=== PATIENT | male | born 1940 | race Caucasian/White ===

== ENCOUNTER → 2016-12-22 | Outpatient (CLI) | payer MEDICARE, BC ==
[2016-12-22 15:38] LABS: ALBUMIN/GLOBULIN RATIO 1.18 (1.00-1.93); BILIRUBIN,TOTAL 0.5 MG/DL (0.2-1.0); CALCIUM LEVEL 8.8 MG/DL (8.8-10.2); CREATININE FOR GFR 1.28 MG/DL (0.70-1.30); GLOMERULAR FILTRATION RATE 57.9 (>42); POTASSIUM SERUM 4.2 MEQ/L (3.5-5.1); TOTAL PROTEIN 7.4 GM/DL (6.4-8.2)
== END ==
LOC: M LAB 14:46
PROVIDERS: ATTEND Ophthalmology
DX: H25.13 Age-related nuclear cataract, bilateral (principal)

== ENCOUNTER → 2017-04-06 | Outpatient (CLI) | payer MEDICARE, BC ==
[~2017-04-06] VITALS: Ht 177.8 cm; Wt 95.3 kg
[~2017-04-06] MED LIST: ASPI1TAB PO; ATOR40TA PO; CENTTAB47 PO; DOFE250C PO; ISTA0.5S OU; MAGN400T5 PO; METO25TA74 PO; NS 1,000 ML IV ONE; PROPOFOL 200 MG/20 ML VIAL As Ordered ONE; TRAV04OPD OU
--- NOTE | 2017-04-06 13:39 | ROOR ---
Patient Name: Kris Givens Procedure Date: 04/06/2017 1:15 PM Date of : 1940 Age: 76 Room: [facility] Gender: Male Note Status: Finalized Procedure: Colonoscopy to Anastomosis + Cold Snare Polypectomy + Hemoclip Indications: High risk colon cancer surveillance: Personal history of colonic polyps, Last colonoscopy: 2011 Providers: Dayne Gonzalez MD Referring MD: NANETTE DYER JR, MD Requesting Provider: Medicines: Monitored Anesthesia Care Complications: No immediate complications. Procedure: Pre-Anesthesia Assessment: - The heart rate, respiratory rate, oxygen saturations, blood pressure, adequacy of pulmonary ventilation, and response to care were monitored throughout the procedure. The Colonoscope was introduced through the anus and advanced to the ileocolonic anastomosis. The colonoscopy was performed without difficulty. The patient tolerated the procedure well. The quality of the bowel preparation was excellent. Findings: The perianal and digital rectal examinations were normal. Non-bleeding internal hemorrhoids were found during retroflexion. The hemorrhoids were small and Grade I (internal hemorrhoids that do not prolapse). Multiple small and large-mouthed diverticula were found in the recto-sigmoid colon, sigmoid colon and descending colon. A medium polyp was found in the mid transverse colon. The polyp was sessile. The polyp was removed with a cold snare. Resection and retrieval were complete. To prevent bleeding after the polypectomy, one hemostatic clip was successfully placed (MR conditional). There was no bleeding at the end of the procedure. The exam was otherwise without abnormality. Impression: - Non-bleeding internal hemorrhoids. - Diverticulosis in the recto-sigmoid colon, in the sigmoid colon and in the descending colon. - One medium polyp in the mid transverse colon, removed with a cold snare. Resected and retrieved. Clip (MR conditional) was placed. - The examination was otherwise normal. Recommendation: - Patient has a contact number available for emergencies. The signs and symptoms of potential delayed complications were discussed with the patient. Return to normal activities tomorrow. Written discharge instructions were provided to the patient. - High fiber diet. - Discharge patient to home. - Continue present medications. - Await pathology results. - Telephone GI clinic for pathology results in 1 week. - Check Portal Online for Path Results.([email or web address] - Repeat colonoscopy for symptoms only. - The findings and recommendations were discussed with the patient's family. Dayne Gonzalez MD Dayne Gonzaelz MD 04/06/2017 1:36:42 PM This report has been signed electronically. Number of Addenda: 0 Note Initiated On: 04/06/2017 1:15 PM Estimated Blood Loss: Estimated blood loss: none.
[2017-04-06 14:05] VITALS: BP 151/74
== END | disposition home or self-care (01) ==
LOC: M OPP 11:34
PROVIDERS: ATTEND Internal Medicine Gastroenterology
DX: Z12.11 Encounter for screening for malignant neoplasm of colon (principal); D12.3 Benign neoplasm of transverse colon; K64.0 First degree hemorrhoids; K57.30 Diverticulosis of large intestine without perforation or abscess without bleeding; Z86.010 Personal history of colon polyps; I48.91 Unspecified atrial fibrillation; I25.10 Atherosclerotic heart disease of native coronary artery without angina pectoris; I10 Essential (primary) hypertension; E78.5 Hyperlipidemia, unspecified; R12 Heartburn; Z85.46 Personal history of malignant neoplasm of prostate; Z92.3 Personal history of irradiation; K21.9 Gastro-esophageal reflux disease without esophagitis; G47.30 Sleep apnea, unspecified; R06.83 Snoring; R06.02 Shortness of breath; Z95.5 Presence of coronary angioplasty implant and graft; Z87.19 Personal history of other diseases of the digestive system; Z91.040 Latex allergy status; Z91.041 Radiographic dye allergy status; Z79.82 Long term (current) use of aspirin; Z87.891 Personal history of nicotine dependence

== ENCOUNTER 2017-10-22 16:15 | Emergency (ER) | payer MEDICARE, BC ==
[~2017-10-22] VITALS: Ht 177.8 cm; Wt 102.5 kg
[~2017-10-22 16:15] MED LIST changes: -CLOP75TA2 PO; -DOXY-278 PO; -MELA3TAB49 PO; -PANT40TA2 PO; -TIKO250C PO
[2017-10-22] MEDS ORDERED: CLOP75TA2 PO (16:25)
[2017-10-22] MEDS ORDERED: DOXY-278 PO (16:25)
[2017-10-22] MEDS ORDERED: MELA3TAB49 PO (16:25)
[2017-10-22] MEDS ORDERED: TIKO250C PO (16:25)
[2017-10-22] MEDS ORDERED: PANT40TA2 PO (16:25)
[2017-10-22 17:15] LABS: BASO # 0.1 10^3/uL (0.0-0.2); BASO % 0.9 % (0.0-1.0); EOS # 0.7 10^3/uL (0.0-0.50); EOS % 10.7 % (0.0-3.0); IMMATURE GRANULOCYTE % 0.3 % (0-0); LYMPH # 1.5 10^3/uL (1.5-4.5); MEAN CORPUSCULAR HEMOGLOBIN 32.2 pg (27.0-33.0); MEAN CORPUSCULAR VOLUME 94.7 fl (80.0-96.0); MONO # 0.7 10^3/uL (0.0-0.8); MONO % 10.7 % (0.0-5.0); NEUTROPHILS # 3.9 10^3/uL (1.8-7.7); NEUTROPHILS % 56.4 % (36.0-66.0); PLATELET COUNT, AUTOMATED 242 10^3/uL (150-450); RED CELL DISTRIBUTION WIDTH 13.2 % (11.5-14.5); WHITE BLOOD COUNT 6.9 10^3/uL (4.0-10.0)
[2017-10-22 17:28] LABS: INR 0.99
[2017-10-22 17:36] LABS: ANION GAP 6 MEQ/L (8-16); BLOOD UREA NITROGEN 18 MG/DL (7-18); CALCIUM LEVEL 8.9 MG/DL (8.8-10.2); CARBON DIOXIDE LEVEL 27 MEQ/L (21-32); CHLORIDE LEVEL 105 MEQ/L (98-107); CREATININE FOR GFR 1.19 MG/DL (0.70-1.30); GLOMERULAR FILTRATION RATE > 60.0 (>42); GLUCOSE, FASTING 132 MG/DL (83-110); POTASSIUM SERUM 4.4 MEQ/L (3.5-5.1); SODIUM LEVEL 138 MEQ/L (136-145)
[2017-10-22 17:42] LABS: ALBUMIN 3.8 GM/DL (3.2-5.2); ALBUMIN/GLOBULIN RATIO 1.36 (1.00-1.93); BILIRUBIN,DIRECT 0.2 MG/DL (0.0-0.2); BILIRUBIN,TOTAL 0.6 MG/DL (0.2-1.0); MAGNESIUM LEVEL 2.4 MG/DL (1.8-2.4); TOTAL PROTEIN 6.6 GM/DL (6.4-8.2)
[2017-10-22] MEDS ORDERED: METOCLOPRAMIDE INJ 10MG/2ML VIAL (J2765) IV ONE (18:30)
[2017-10-22] MEDS ORDERED: ISOVUE-370 76% 100ML VIAL (Q9967) As Ordered ONE (18:35)
[2017-10-22 18:43] LABS: DIGOXIN LEVEL 0.1 NG/ML (0.5-2.0)
--- NOTE | 2017-10-22 19:08 | REP ---
Clinical: Dyspnea . Comparison: 05/24/2011. Technique: Axial contrast enhanced images from the thoracic inlet to the upper abdomen using 100 ml Isovue 370 intravenous contrast material with MIP coronal and sagittal re-formations. Findings: Satisfactory enhancement of the pulmonary vasculature is achieved and no filling defects are identified to suggest pulmonary embolus. Atherosclerotic changes to the thoracic aorta and coronary arteries noted without aortic aneurysm or significant cardiomegaly. Pericardial effusion. Lung rowley demonstrate minimal chronic stable biapical scarring and small bullae as well as mild bibasilar fibroatelectatic changes and bronchiectasis. No acute consolidation, pleural effusion, significant nodule or mass lesion identified. Tiny 2 mm nodules in the periphery of the right hemithorax are stable compared to 2010. Pneumothorax. No adenopathy. Impression: No evidence for pulmonary embolus. No acute pleuroparenchymal or mediastinal process. Signed by Tom Norwood MD 10/22/2017 07:00 P
[2017-10-22 21:18] VITALS: BP 154/76
--- NOTE | 2017-10-24 08:34 | ECGEPIP ---
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
--- NOTE | 2017-10-24 08:38 | ECGEPIP ---
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
== END 2017-10-22 21:15 | disposition home or self-care (01) ==
LOC: M ED 16:15
DX: R06.02 Shortness of breath (principal); Z79.01 Long term (current) use of anticoagulants; Z79.899 Other long term (current) drug therapy; Z79.82 Long term (current) use of aspirin; Z91.041 Radiographic dye allergy status; Z91.040 Latex allergy status; Z86.011 Personal history of benign neoplasm of the brain; Z87.891 Personal history of nicotine dependence; Z95.5 Presence of coronary angioplasty implant and graft; Z98.890 Other specified postprocedural states
CPT/HCPCS: 71020; 71275; 80048; 80076; 80162; 82550; 82553; 83735; 83880; 84443; 84484; 85025; 85610; 87040; 87804; 93005; 93041; 94760; 96372; 99285; J2765; Q9967

== ENCOUNTER → 2017-10-22 | Outpatient (CLI) | payer MEDICARE, BC ==
[~2017-10-22] MED LIST changes: -ATOR40TA PO; +ATOR40TA75 PO; +CLOP75TA2 PO; +DOXY-278 PO; +MELA3TAB49 PO; +METO1TAB32 PO; -METO25TA74 PO; -NS 1,000 ML IV ONE; +PANT40TA2 PO; -PROPOFOL 200 MG/20 ML VIAL As Ordered ONE; +TIKO250C PO
--- NOTE | 2017-10-22 15:40 | REP ---
Clinical: Chest pain and shortness of breath . Comparison: 05/14/2016 . Technique: PA and lateral. Findings: The mediastinum and cardiac silhouette are normal. The lung rowley demonstrate chronic changes without acute consolidation, effusion, or pneumothorax. The skeletal structures are intact and normal. Impression: 1. No acute cardiopulmonary process. Signed by Tom Norwood MD 10/22/2017 03:32 P
== END ==
LOC: M WUC 14:57
PROVIDERS: ATTEND Physician Assistant
DX: R06.02 Shortness of breath (principal)

== ENCOUNTER → 2018-02-14 | Outpatient (CLI) | payer MEDICARE, BC ==
[~2018-02-14] MED LIST changes: -ASPI1TAB PO; -ATOR40TA75 PO; -CENTTAB47 PO; -DOFE250C PO; -ISTA0.5S OU; -MAGN400T5 PO; +METHACHOLINE KIT (J7674) INH; -METO1TAB32 PO; -TRAV04OPD OU
== END ==
LOC: M CARPUL 14:57
DX: R05 Cough (principal); R06.00 Dyspnea, unspecified
CPT/HCPCS: J7674

== ENCOUNTER 2018-05-17 07:51 | Day surgery (SDC) | payer MEDICARE, BC ==
[2018-05-17] MEDS: NS 1,000 ML IV (08:15)
[2018-05-17] MEDS ORDERED: fentaNYL 100 MCG/2 ML INJECTION (J3010) As Ordered (09:14)
[2018-05-17] MEDS ORDERED: LIDOCAINE 2% INJ 100 MG/5 ML SDV (FOR ANES.) As Ordered (09:14)
[2018-05-17] MEDS ORDERED: PROPOFOL 500 MG/50 ML VIAL As Ordered (09:14)
== END 2018-05-17 10:05 | disposition home or self-care (01) ==
LOC: M OPP 07:51
DX: Z09 Encounter for follow-up examination after completed treatment for conditions other than malignant neoplasm (principal); Z86.010 Personal history of colon polyps; D12.3 Benign neoplasm of transverse colon; K64.0 First degree hemorrhoids; K57.30 Diverticulosis of large intestine without perforation or abscess without bleeding; Z98.0 Intestinal bypass and anastomosis status; R12 Heartburn; R05 Cough; K22.8 Other specified diseases of esophagus; Z98.84 Bariatric surgery status; K31.89 Other diseases of stomach and duodenum; I48.91 Unspecified atrial fibrillation; Z95.5 Presence of coronary angioplasty implant and graft; I25.10 Atherosclerotic heart disease of native coronary artery without angina pectoris; I10 Essential (primary) hypertension; E78.5 Hyperlipidemia, unspecified; Z87.19 Personal history of other diseases of the digestive system; K21.9 Gastro-esophageal reflux disease without esophagitis; M19.90 Unspecified osteoarthritis, unspecified site; Z85.46 Personal history of malignant neoplasm of prostate; Z92.3 Personal history of irradiation; G47.30 Sleep apnea, unspecified; R06.83 Snoring; Z85.828 Personal history of other malignant neoplasm of skin; Z91.041 Radiographic dye allergy status; Z79.82 Long term (current) use of aspirin; Z79.899 Other long term (current) drug therapy; Z87.891 Personal history of nicotine dependence
CPT/HCPCS: 45385

== ENCOUNTER → 2018-10-11 | Outpatient (CLI) | payer MEDICARE, BC ==
[2018-10-11 15:10] LABS: BASO # 0.1 10^3/uL (0.0-0.2); BASO % 0.8 % (0.0-1.0); EOS # 0.4 10^3/uL (0.0-0.50); EOS % 6.3 % (0.0-3.0); HEMOGLOBIN 13.2 g/dl (13.5-17.5); IMMATURE GRANULOCYTE % 0.3 % (0-3.0); LYMPH # 1.4 10^3/uL (1.5-4.5); LYMPH % 21.8 % (24.0-44.0); MEAN CORPUSCULAR HEMOGLOBIN 32.7 pg (27.0-33.0); MONO # 0.8 10^3/uL (0.0-0.8); MONO % 12.7 % (0.0-5.0); NEUTROPHILS # 3.8 10^3/uL (1.8-7.7); NEUTROPHILS % 58.1 % (36.0-66.0); PLATELET COUNT, AUTOMATED 274 10^3/uL (150-450); RED BLOOD COUNT 4.04 10^6/uL (4.30-6.10); RED CELL DISTRIBUTION WIDTH 13.4 % (11.5-14.5); WHITE BLOOD COUNT 6.5 10^3/uL (4.0-10.0)
[2018-10-11 15:25] LABS: ANION GAP 7 MEQ/L (8-16); BLOOD UREA NITROGEN 24 MG/DL (7-18); CALCIUM LEVEL 9.2 MG/DL (8.8-10.2); CARBON DIOXIDE LEVEL 29 MEQ/L (21-32); CHLORIDE LEVEL 103 MEQ/L (98-107); GLOMERULAR FILTRATION RATE 56.5 (>35); GLUCOSE, FASTING 123 MG/DL (70-100); POTASSIUM SERUM 4.8 MEQ/L (3.5-5.1); SODIUM LEVEL 139 MEQ/L (136-145)
== END ==
LOC: M LAB 13:58
DX: R51 Headache (principal)
CPT/HCPCS: 70450

== ENCOUNTER 2019-09-03 09:57 | Day surgery (SDC) | payer MEDICARE, BC ==
[~2019-09-03] VITALS: Ht 177.8 cm; Wt 107.0 kg
[~2019-09-03 09:57] MED LIST changes: +ASPI81TA26 PO; +ATOR40TA75 PO; +CARI1TAB7 PO; +CENTTAB47 PO; +CLOP75TA2 PO; +DOFE250C PO; +DOXY-350 PO; +ISTA0.5S OU; +MAGN400T PO; +MAGN400T5 PO; +MELA3TAB49 PO; -METHACHOLINE KIT (J7674) INH; +METO1TAB32 PO; +MULTCAP12 PO; +NS 1,000 ML IV ONE; +OMEP20CA4 PO; +OMEP40CA2 PO; +PANT40TA3 PO; +TIKO250C PO; +TRAV04OPD OU
[2019-09-03] MEDS ORDERED: LIDOCAINE 2% INJ 100 MG/5 ML SDV (FOR ANES.) As Ordered ONE (12:01)
[2019-09-03] MEDS ORDERED: PROPOFOL 200 MG/20 ML VIAL As Ordered ONE ×2 (12:01→12:07)
--- NOTE | 2019-09-03 12:01 | ROOR ---
Patient Name: Kris Givens Procedure Date: 09/03/2019 11:41 AM Date of : 1940 Age: 78 Room: [facility] Gender: Male Note Status: Finalized Procedure: Upper Endoscopy + Biopsies Indications: Unexplained iron deficiency anemia Providers: Dayne Gonzalez MD Referring MD: NANETTE DYER JR, MD Requesting Provider: Medicines: Monitored Anesthesia Care Complications: No immediate complications. Procedure: Pre-Anesthesia Assessment: - The heart rate, respiratory rate, oxygen saturations, blood pressure, adequacy of pulmonary ventilation, and response to care were monitored throughout the procedure. The Endoscope was introduced through the mouth, and advanced to the second part of duodenum. The upper GI endoscopy was accomplished without difficulty. The patient tolerated the procedure well. Findings: The Z-line was irregular and was found 35 cm from the incisors. Multiple biopsies were obtained with cold forceps for evaluation to rule out Reeder's Esophagus randomly at the gastroesophageal junction. Evidence of a patent Billroth II gastrojejunostomy was found. This was traversed. Diffuse mild inflammation characterized by adherent blood, congestion (edema), erosions, erythema and friability was found in the entire examined stomach. Biopsies were taken with a cold forceps for histology. The exam was otherwise without abnormality. Impression: - Z-line irregular, 35 cm from the incisors. - Patent Billroth II gastrojejunostomy was found. - Mucosal changes suspicious for gastritis. Biopsied. - The examination was otherwise normal. - Multiple biopsies were obtained at the gastroesophageal junction. - The examination was otherwise normal. Recommendation: - Await pathology results. - Discharge patient to home. - Follow an antireflux regimen. - Continue present medications. - Await pathology results. - Telephone GI clinic for pathology results in 1 week. - Return to referring physician. - Use sucralfate tablets 1 gram PO BID. - The findings and recommendations were discussed with the patient's family. Dayne Gonzalez MD Dayne Gonzalez MD 09/03/2019 12:00:26 PM Electronically signed by Dayne Gonzalez MD Number of Addenda: 0 Note Initiated On: 09/03/2019 11:41 AM Estimated Blood Loss: Estimated blood loss: none.
--- NOTE | 2019-09-03 12:28 | ROOR ---
Patient Name: Kris Givens Procedure Date: 09/03/2019 11:41 AM Date of : 1940 Age: 78 Room: [facility] Gender: Male Note Status: Finalized Procedure: Total Colonoscopy to Anastomosis + Cold snare Polypectomy + Hemoclips Indications: Unexplained iron deficiency anemia Providers: Dayne Gonzalez MD Referring MD: NANETTE DYER JR, MD Requesting Provider: Medicines: Monitored Anesthesia Care Complications: No immediate complications. Procedure: Pre-Anesthesia Assessment: - The heart rate, respiratory rate, oxygen saturations, blood pressure, adequacy of pulmonary ventilation, and response to care were monitored throughout the procedure. The Colonoscope was introduced through the anus and advanced to the ileocolonic anastomosis. The colonoscopy was performed without difficulty. The patient tolerated the procedure well. The quality of the bowel preparation was excellent. Findings: The perianal and digital rectal examinations were normal. Non-bleeding internal hemorrhoids were found during retroflexion. The hemorrhoids were small and Grade I (internal hemorrhoids that do not prolapse). Multiple small and large-mouthed diverticula were found in the recto-sigmoid colon, sigmoid colon and descending colon. A large polyp was found at 50 cm proximal to the anus. The polyp was sessile. The polyp was removed with a cold snare. Resection and retrieval were complete. To prevent bleeding after the polypectomy, three hemostatic clips were successfully placed (MR conditional). There was no bleeding at the end of the procedure. A large polyp was found in the transverse colon. The polyp was sessile. The polyp was removed with a cold snare. Resection and retrieval were complete. To prevent bleeding after the polypectomy, three hemostatic clips were successfully placed (MR conditional). There was no bleeding at the end of the procedure. The exam was otherwise without abnormality. Impression: - Non-bleeding internal hemorrhoids. - Diverticulosis in the recto-sigmoid colon, in the sigmoid colon and in the descending colon. - One large polyp at 50 cm proximal to the anus, removed with a cold snare. Resected and retrieved. Clips (MR conditional) were placed. - One large polyp in the transverse colon, removed with a cold snare. Resected and retrieved. Clips (MR conditional) were placed. - The examination was otherwise normal. Recommendation: - Patient has a contact number available for emergencies. The signs and symptoms of potential delayed complications were discussed with the patient. Return to normal activities tomorrow. Written discharge instructions were provided to the patient. - High fiber diet. - Discharge patient to home. - Continue present medications. - Await pathology results. - Telephone GI clinic for pathology results in 1 week. - Repeat colonoscopy for surveillance based on pathology results. - Return to referring physician. - The findings and recommendations were discussed with the patient's family. Dayne Gonzalez MD Dayne Gonzalez MD 09/03/2019 12:28:06 PM Electronically signed by Dayne Gonzalez MD Number of Addenda: 0 Note Initiated On: 09/03/2019 11:41 AM Estimated Blood Loss: Estimated blood loss: none.
[2019-09-03 12:45] VITALS: BP 131/69
== END 2019-09-03 12:55 | disposition home or self-care (01) ==
LOC: M OPP 09:57
PROVIDERS: ATTEND Internal Medicine Gastroenterology
DX: K64.0 First degree hemorrhoids (principal); D12.6 Benign neoplasm of colon, unspecified; D21.3 Benign neoplasm of connective and other soft tissue of thorax; K57.30 Diverticulosis of large intestine without perforation or abscess without bleeding; D50.9 Iron deficiency anemia, unspecified; K22.8 Other specified diseases of esophagus; Z98.0 Intestinal bypass and anastomosis status; K31.89 Other diseases of stomach and duodenum; I48.91 Unspecified atrial fibrillation; G47.30 Sleep apnea, unspecified; Z79.82 Long term (current) use of aspirin; Z79.899 Other long term (current) drug therapy; Z91.041 Radiographic dye allergy status; Z85.46 Personal history of malignant neoplasm of prostate; Z92.3 Personal history of irradiation; Z87.19 Personal history of other diseases of the digestive system

== ENCOUNTER → 2020-03-14 | Outpatient (REF) | payer MEDICARE, BC ==
[~2020-03-14] MED LIST changes: -MAGN400T PO; +MAGN400T3 PO; -NS 1,000 ML IV ONE; +OMEP1CAP73 PO; -OMEP20CA4 PO; -OMEP40CA2 PO; +OMEP40CA97 PO
== END ==
LOC: M LAB REF 16:37
PROVIDERS: ATTEND Internal Medicine
DX: R74.8 Abnormal levels of other serum enzymes (principal)

== ENCOUNTER 2020-03-25 15:07 | Inpatient (IN) | payer MEDICARE, BC ==
[~2020-03-25] VITALS: Ht 177.8 cm; Wt 111.7 kg
[2020-03-25] MEDS ORDERED: SUCR1TAB56 PO (15:39)
[2020-03-25] MEDS ORDERED: MIRTAZAPINE (15:39)
[2020-03-25] MEDS ORDERED: METO1TAB32 PO (15:39)
[2020-03-25] MEDS ORDERED: BREO1INH INH (15:39)
[2020-03-25] MEDS ORDERED: NS 1,000 ML IV ONE (16:00)
[2020-03-25] MEDS ORDERED: METOPROLOL SUCC *XL* 25MG TAB (TopROL *XL*) PO ONE (16:15)
[2020-03-25 16:19] LABS: BASO # 0.1 10^3/uL (0.0-0.2); BASO % 0.6 % (0.0-1.0); EOS # 0.4 10^3/uL (0.0-0.5); EOS % 3.8 % (0.0-3.0); HEMATOCRIT 42.8 % (42.0-52.0); LYMPH # 1.1 10^3/uL (1.5-5.0); LYMPH % 11.1 % (24.0-44.0); MEAN CORPUSCULAR HEMOGLOBIN 31.7 pg (27.0-33.0); MEAN CORPUSCULAR HGB CONC 32.7 g/dl (32.0-36.5); MEAN CORPUSCULAR VOLUME 97.1 fl (80.0-96.0); MONO # 1.1 10^3/uL (0.0-0.8); MONO % 11.9 % (0.0-5.0); NEUTROPHILS # 6.8 10^3/uL (1.5-8.5); NEUTROPHILS % 72.1 % (36.0-66.0); PLATELET COUNT, AUTOMATED 258 10^3/uL (150-450); RED BLOOD COUNT 4.41 10^6/uL (4.30-6.10); WHITE BLOOD COUNT 9.5 10^3/uL (4.0-10.0)
[2020-03-25 16:56] LABS: ALT/SGPT 54 U/L (12-78); BILIRUBIN,DIRECT 0.2 MG/DL (0.0-0.2); BILIRUBIN,TOTAL 0.6 MG/DL (0.2-1.0); BLOOD UREA NITROGEN 22 MG/DL (7-18); C REACTIVE PROTEIN QUANTITATIV 1.85 MG/DL (0.00-0.30); CALCIUM LEVEL 8.9 MG/DL (8.8-10.2); CARBON DIOXIDE LEVEL 27 MEQ/L (21-32); CHLORIDE LEVEL 103 MEQ/L (98-107); CK-MB VALUE MASS < 1.0 NG/ML (<3.6); CPK CREATINE PHOSPHOKINASE 41 U/L (39-308); CREATININE FOR GFR 1.17 MG/DL (0.70-1.30); FREE T4 0.98 NG/DL (0.76-1.46); GLOMERULAR FILTRATION RATE > 60.0 (>35); GLUCOSE, FASTING 104 MG/DL (70-100); MB/CK RELATIVE INDEX 2.44 (< OR =4); NT-PRO BNP 169 PG/ML (<450); POTASSIUM SERUM 4.7 MEQ/L (3.5-5.1); SODIUM LEVEL 134 MEQ/L (136-145); THYROID STIMULATING HORMONE 0.936 uIU/ML (0.358-3.740); TOTAL PROTEIN 7.8 GM/DL (6.4-8.2); TROPONIN I < 0.02 NG/ML (< 0.10)
[2020-03-25] MEDS ORDERED: ISOVUE-370 76% 100ML VIAL As Ordered ONE (17:06)
--- NOTE | 2020-03-25 17:08 | REP ---
REASON FOR EXAM: Chest pain. COMPARISON: Multiple, the latest 10/22/2016. The technique utilized in obtaining the radiograph has magnified the cardiac silhouette and accentuated the interstitial markings. There is cardiomegaly accentuated by technique. There is no significant change in appearance of the lung rowley. Mild fibrotic changes with basilar predominance, status quo. No acute patchy parenchymal opacities or pleural effusions have developed. There is no change in the osseous structures. IMPRESSION: Stable-appearing chronic changes, as described above. Electronically Signed by Farhan Lee DO 03/26/2020 08:59 A
--- NOTE | 2020-03-25 17:43 | REPVR ---
PROCEDURE INFORMATION: Exam: CT Head Without Contrast Exam date and time: 03/25/2020 5:31 PM Age: 79 years old Clinical indication: Pain; Headache TECHNIQUE: Imaging protocol: Computed tomography of the head without contrast. Radiation optimization: All CT scans at this facility use at least one of these dose optimization techniques: automated exposure control; mA and/or kV adjustment per patient size (includes targeted exams where dose is matched to clinical indication); or iterative reconstruction. COMPARISON: CT Head without contrast 10/11/2018 2:47 PM FINDINGS: Brain: No concerning intracranial mass, focal mass effect or midline shift. Calcified 13 mm right frontal meningioma. No mass effect No acute intracranial hemorrhage. Mild decreased attenuation in periventricular/centrum semiovale white matter. No focal effacement of cortical sulci to indicate acute cortical infarct. Ventricles: Prominent ventricles and CSF spaces suggest parenchymal volume loss. Bones/joints: No calvarial fracture or destructive process. Sinuses: Visualized paranasal sinuses are unremarkable. Mastoid air cells: Mastoid air cells are normally aerated. Orbits: Visualized globes and orbits are unremarkable. Soft tissues: No focal extracranial soft tissue swelling. IMPRESSION: 1. No acute intracranial abnormality. 2. Atrophy and chronic microangiopathic change in supratentorial white matter. Electronically signed by: Ron Chang On 03/25/2020 17:42:48 PM
--- NOTE | 2020-03-25 17:45 | REPVR ---
PROCEDURE INFORMATION: Exam: CT Cervical Spine Without Contrast Exam date and time: 03/25/2020 5:31 PM Age: 79 years old Clinical indication: Neck pain TECHNIQUE: Imaging protocol: Computed tomography images of the cervical spine without contrast. Radiation optimization: All CT scans at this facility use at least one of these dose optimization techniques: automated exposure control; mA and/or kV adjustment per patient size (includes targeted exams where dose is matched to clinical indication); or iterative reconstruction. COMPARISON: No relevant prior studies available. FINDINGS: Vertebrae: No traumatic segmental malalignment of cervical spine or craniocervical junction. Vertebral body height is maintained at all levels. No acute fracture. No destructive or blastic cervical spine osseous lesion. Intervertebral disc height is decreased at multiple levels, with typical degenerative pattern and associated endplate, articular pillar and uncovertebral spurs. Osseous neural foraminal stenosis, right C3-C4, moderately severe, mild C5-C6 and C6-C7. Mild spinal canal stenosis C3-C4 and C6-C7 secondary to posterior osteophytes Prevertebral Space: Prevertebral soft tissues demonstrate no asymmetry. Lungs: No acute concerning abnormality of the imaged lung apices. IMPRESSION: 1. No acute fracture or traumatic subluxation of the cervical spine. 2. Multilevel degenerative disc and articular pillar arthropathy. Electronically signed by: Ron Chang On 03/25/2020 17:45:26 PM
--- NOTE | 2020-03-25 17:48 | REPVR ---
PROCEDURE INFORMATION: Exam: CT Angiography Chest With Contrast Exam date and time: 03/25/2020 5:31 PM Age: 79 years old Clinical indication: Chest pain TECHNIQUE: Imaging protocol: Computed tomographic angiography of the chest with intravenous contrast. 3D rendering: MIP and/or 3D reconstructed images were created by the technologist. Radiation optimization: All CT scans at this facility use at least one of these dose optimization techniques: automated exposure control; mA and/or kV adjustment per patient size (includes targeted exams where dose is matched to clinical indication); or iterative reconstruction. Contrast material: ISO 370; Contrast volume: 100 ml; Contrast route: IV; COMPARISON: CT ANGIO CHEST 10/22/2017 6:39 PM FINDINGS: Pulmonary arteries: Peripheral pulmonary artery evaluation limited by cardiac and respiratory motion artifact. Central pulmonary arteries show no intraluminal defect suggestive of clot. Great vessels off aortic arch: Atherosclerotic calcifications in the coronary vessels. Aorta: No thoracic aortic aneurysm or dissection. Lungs: Pulmonary vascular/interstitial pattern does not suggest active pulmonary edema. No suspicious lung mass or air space process. No central endobronchial lesion. Atelectasis is present at the lung bases. Pleural space: No pleural effusion or pneumothorax. Heart: No overt cardiac enlargement or abnormal volume of pericardial fluid. Lymph nodes: No enlarged mediastinal lymph nodes. Kidneys and ureters: Probable left renal cysts. Indeterminate 3 cm right renal midpole lesion posteriorly. Bones/joints: Bony structures are unremarkable except for thoracic degenerative disc disease. IMPRESSION: 1. No evidence of acute, central pulmonary embolus. Peripheral pulmonary arterial evaluation is limited by cardiac and respiratory motion artifact. 2. Patchy dependent atelectasis. No pneumonia or pulmonary edema. 3. Indeterminate density 3.2 cm right renal midpole lesion. Abdomen pelvis CT is pending Electronically signed by: Ron Chang On 03/25/2020 17:48:12 PM
[2020-03-25] MEDS ORDERED: hydrALAZINE 20MG/ML 1ML VIAL (J0360 PER 20MG) IV ONE (18:00)
[2020-03-25] MEDS ORDERED: KETOROLAC 30 MG/ML 1ML VIAL IV ONE (18:00)
--- NOTE | 2020-03-25 18:10 | REPVR ---
PROCEDURE INFORMATION: Exam: CT Abdomen And Pelvis With Contrast Exam date and time: 03/25/2020 5:31 PM Age: 79 years old Clinical indication: Abdominal pain; Additional info: Chest pain TECHNIQUE: Imaging protocol: Computed tomography of the abdomen and pelvis with intravenous contrast. Radiation optimization: All CT scans at this facility use at least one of these dose optimization techniques: automated exposure control; mA and/or kV adjustment per patient size (includes targeted exams where dose is matched to clinical indication); or iterative reconstruction. Contrast material: ISO 370; Contrast volume: 100 ml; Contrast route: IV; COMPARISON: No relevant prior studies available. FINDINGS: Liver: Liver appears normal with no focal abnormality. Gallbladder and bile ducts: Gallbladder is surgically absent. Pancreas: Pancreas appears normal. No focal mass or peripancreatic inflammation. Spleen: Spleen appears homogeneous without focal mass. Adrenals: Adrenal glands are normal in appearance. Kidneys and ureters: Left kidney demonstrates simple fluid density cysts measuring up to 3.6 cm. Right kidney demonstrates a solid 3.2 cm lesion posterior midpole concerning for a primary renal neoplasm. No obstructive uropathy. Stomach and bowel: No evidence of small bowel obstruction. Diverticular changes are present within the colon without inflammation. Appendix: Appendix is not visualized. Cecal tip suture line suggests prior appendix resection. Intraperitoneal space: No pneumoperitoneum. Vasculature: Atherosclerotic change present in the aorta, without aneurysm. Main portal and splenic veins enhance normally. Lymph nodes: No enlarged lymph nodes. Bladder: Urinary bladder appears normal. Reproductive: Dystrophic prostate calcifications are noted. Bones/joints: Bony structures are normal except for lumbar spine degenerative disc changes. Soft tissues: Fat-containing left inguinal hernia is present. IMPRESSION: 1. No acute surgical or inflammatory process. 2. Solid appearing right renal lesion measuring 3.2 cm, concerning for a solid primary neoplasm. 3. 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 No follow-up imaging is recommended for these lesions per consensus recommendations based on imaging criteria. Electronically signed by: Ron Chang On 03/25/2020 18:10:10 PM
[2020-03-25] MEDS ORDERED: REME30TA PO (18:11)
[2020-03-25] MEDS ORDERED: TIMO0.5S39 OU (18:11)
[2020-03-25] MEDS ORDERED: CARI1TAB7 PO (18:11)
[2020-03-25] MEDS ORDERED: ALBU8.5H INH (18:11)
[2020-03-25] MEDS ORDERED: ACETAMINOPHEN TAB 650MG DOSE (2X325MG) PO PRN (19:15)
[2020-03-25] MEDS ORDERED: LORazepam 2 MG TAB PO PRN (19:15)
[2020-03-25] MEDS ORDERED: ONDANSETRON 4 MG TAB PO PRN (19:15)
[2020-03-25 19:36] LABS: ETHYL ALCOHOL (ETHANOL) < 0.003 % (0.000-0.010)
[2020-03-25] MEDS ORDERED: carisoprodoL 350 MG TAB PO PRN (20:00)
[2020-03-25] MEDS ORDERED: ALBUTEROL 90 MCG/ACT 8GM HFA INHALER INH PRN (20:00)
--- NOTE | 2020-03-25 20:02 | HPEPDOC ---
[facility] Medical History & Physical Date of Admission Mar 25, 2020 Date of Service: Mar 25, 2020 Primary Care Physician: Jr Rai Collins Attending Physician: ALBARO DONATO MD History and Physical TIME OF SERVICE: 850PM CHIEF COMPLAINT: shoulder pain HISTORY OF PRESENT ILLNESS: This is an 79 yr old M who presents w c/o of right sided 10/10 in severity shoulder pain that begun 3 days ago; yesterday the pain was a less severe, but today the pain became worse therefore he decided to come to the hospital. The pain radiates from his shoulder to the right side of his neck and head. He also reports that his heart has been pounding and he feels like his eyes are bulging when his heart is beating. The pain is worse when he turns his head and has improved after receiving pain meds in the ER. He denies having blurry vision, CP, n/v/f/c. He has chronic relapsing and remitting dyspnea which he attributes to his COPD; today he admits to feeling more short of breath. REVIEW OF SYSTEMS: 12 point review of systems negative except as listed in HPI PAST MEDICAL/ SURGICAL HISTORY: Chronic hypertension Chronic CAD status post placement of XIENCE stent in LAD A. fib diagnosed in 1996 on dofetilide GERD/recurrent PUD status post Billroth II in 1999 COPD Diverticulosis Hemorrhoids OA affecting the right hand and right hip History of prostate adenocarcinoma [place] grade 3 T1c N0 M0 diagnosed in 2007 s/p IMRT and Lupron therapy ED NATALIE with periodic limb movement disorder Class I obesity History of epididymitis Unspecified Back surgery Appendectomy Right hemicolectomy for villous adenoma in 1990 Multipe tubular adenomas s/p polypectomies Cholecystectomy Surgery for nasal lacrimal duct obstruction, canalicular obstruction of the upper and lower eyelid, and punctal obstruction of the upper and lower eyelid SOCIAL HISTORY: According to his daughter the patient drinks heavily, but the patient denies this Quit smoking Has 10 grandchildren Brother of metastatic CA 2 weeks ago FAMILY HISTORY: Prostate cancer Colon cancer Skin cancer Myasthenia gravis ALLERGIES: Please see below. HOME MEDICATIONS: Please see below. PHYSICAL EXAMINATION: Vital Signs Date Time Temp Pulse Resp B/P (MAP) Pulse Ox O2 Delivery O2 Flow Rate FiO2 03/25/20 15:22 56 20 97 Room Air 03/25/20 15:27 222/100 (140) 03/25/20 19:15 99.2 GEN: NAD / well nourished /well developed INTEGUMENT: spider angiomata on nares / no generalized palor or flushing HEENT: NCAT / MMM&P CVS: RRR/NMRG/ radial pulses intact / no lower extremity edema LUNGS: CTAB on RA ABD: obese MSK: ANDREWS x4 extremities NEURO: CN 2-12 grossly intact / speech not dysarthric PSYCH: A&O x 3 / able to understand and follow all commands LABORATORY DATA: Immature Granulocyte % (Auto) 0.5, Neutrophils (%) (Auto) 72.1H, Lymphocytes (%) (Auto) 11.1L, Monocytes (%) (Auto) 11.9H, Eosinophils (%) (Auto) 3.8H, Basophils (%) (Auto) 0.6, Neutrophils # (Auto) 6.8, Lymphocytes # (Auto) 1.1L, Monocytes # (Auto) 1.1H, Eosinophils # (Auto) 0.4, Basophils # (Auto) 0.1, Nucleated Red Blood Cells % (auto) 0.0, Anion Gap 4L, Glomerular Filtration Rate > 60.0, Calci um Level 8.9, Total Bilirubin 0.6, Direct Bilirubin 0.2, Aspartate Amino Transf (AST/SGOT) 42H, Alanine Aminotransferase (ALT/SGPT) 54, Alkaline Phosphatase 159H, Total Creatine Kinase 41, Creatine Kinase MB < 1.0, Creatine Kinase MB Relative Index 2.44, Troponin I < 0.02, C-Reactive Protein, Quantitative 1.85H, CH-Dut-A-Type Natriuretic Peptide 169, Total Protein 7.8, Albumin 4.0, Albumin/Globulin Ratio 1.05, Thyroid Stimulating Hormone (TSH) 0.936, Free Thyroxine 0.98, Ethyl Alcohol Level < 0.003 IMAGING: Chest x-ray " IMPRESSION: Stable-appearing chronic changes, as described above" CT of the head w/o contrast " IMPRESSION: 1. No acute intracranial abnormality. 2. Atrophy and chronic microangiopathic change in supratentorial white matter. " CT of the cervical spine w/o contrast "IMPRESSION: 1. No acute fracture or traumatic subluxation of the cervical spine. 2. Multilevel degenerative disc and articular pillar arthropathy. " CTA of the chest "IMPRESSION: 1. No evidence of acute, central pulmonary embolus. Peripheral pulmonary arterial evaluation is limited by cardiac and respiratory motion artifact. 2. Patchy dependent atelectasis. No pneumonia or pulmonary edema. 3. Indeterminate density 3.2 cm right renal midpole lesion. Abdomen pelvis CT is pending" CT abdomen "IMPRESSION: 1. No acute surgical or inflammatory process. 2. Solid appearing right renal lesion measuring 3.2 cm, concerning for a solid primary neoplasm. 3. Advanced degenerative disc and facet arthropathy in the lower lumbar spine, particularly L3-L4 and L4-L5" MICROBIOLOGY: Please see below. ASSESSMENT: is an 79-year-old with a history of chronic hypertension, chronic CAD, A. fib, prostate cancer, colon cancer, NATALIE, obesity & multiple surgeries who is admitted primarily for management of hypertensive urgency. PLAN: 1. Hypertensive Urgency SBP >180 OR DBP >110 + symptoms ([place]OLD[place])= use PO antihypertensive meds His has blood pressure was 239/101, but has decreased to 161/74 after receiving metoprolol and hydralazine Trigger may be alcohol EKG didn't show any acute ST changes His trop, K GFR, Cr, BUN and Ca were wnl Plan: admit to PCU for close monitoring / will aim to lower BP by 25% w/in the first 2-4 hours with target BP of <160/100 / will ask RN to put pt in a quiet room which can help BP fall by 10 to 20mmHg or more / resume home meds (metoprolol) & add amlodipine 5mg QHS/ low salt diet / recommend cardiovascular exercise 4-5 days a week / can f/u with PCP for referral to system administration advisor for assistance w weight loss which can help improve BP control on an out pat basis IF patient has CKD + HTN refractory to treatment with 4 or more agents refer to [facility] for co-management on an outpatient basis 2. Right Kidney Lesion 3.2 cm in size & concerning for malignancy Plan: per the patient can f/u w him on an out pt basis to complete the work up 3. Mild COPD Exacerbation Plan: pulse ox / solumedrol now and switch to prednisone tomorrow / PPI / duonebs Q6HP w levalbuterol Q1HP 4. Alcohol Abuse Plan: telemetry / seizure precautions / fall precautions / f/u Etho / Thiamine 100mg daily, Folic acid 1mg daily, MVI / IVF / Zofran PRN for n/v 5. Chronic CAD Plan: ASA / atorvastatin 6. A. fib [id number] Score = 3 Plan: dofetilide / for unclear reasons he is not on AC / bc he has hx of anemia will ask the day time team to talk to his E Business Consultant prior to selecting AC 7. GERD/recurrent PUD Plan: sucralfate 8.Chronic Back Pain Plan: carisoprodol 9. NATALIE Plan: own CPAP 10. Class I Obesity BMI 34.5 Has co-existing NATALIE which complicates his care Plan: f/u A1C if not done in the last 3 yrs / the pt can f/u w his PCP for system administration advisor consult DVT PROPHYLAXIS: Lovenox DISPOSITION: home after more than 2 midnights' stay Home Medications Scheduled Amlodipine Besylate (Amlodipine Besylate) 5 Mg Tablet, 5 MG PO DAILY Please take 1 tab by mouth daily. Aspirin (Aspirin EC) 81 Mg Tab, 81 MG PO QHS Atorvastatin Calcium (Atorvastatin Calcium) 40 Mg Tab, 40 MG PO QHS Dofetilide (Tikosyn) 250 Mcg Cap, 250 MCG PO BID Fluticasone/Vilanterol (Breo Ellipta 100-25 Mcg INH) 1 Each Blst.w.dev, 1 PUFF INH DAILY Magnesium Oxide (Magnesium Oxide) 400 Mg Tablet, 400 MG PO BID Metoprolol Succinate (Metoprolol Succinate) 25 Mg Tab.er.24h, 25 MG PO QHS Mirtazapine (Remeron) 30 Mg Tablet, 30 MG PO QHS Sucralfate (Sucralfate) 1 Gm Tablet, 1 GM PO QHS Timolol Maleate (Timolol Maleate) 0.5% 5ML Drop.daily, 1 DROP OU DAILY Travoprost (Travatan Z) 50 Drop/2.5 Ml Soln, 1 DROP OU QHS Scheduled PRN Albuterol Sulfate (Albuterol Sulfate Hfa) 8.5 Gm Hfa.aer.ad, 2 PUFF INH QID PRN for SHORTNESS OF BREATH Carisoprodol (Carisoprodol) 350 Mg Tablet, 350 MG PO TID PRN for SPASMS Allergies Coded Allergies: Contrast Media (Verified Adverse Reaction, Mild, nausea, feeling hot, 08/24/19) A-FIB/CHADSVASC A-FIB History Current/History of A-Fib/PAF?: Yes Current PO Anticoag Therapy: No Treatment Other reason anticoagulant not: will ask day time physicians to call the patient's E Business Consultant to discuss ALBARO DONATO MD Mar 25, 2020 20:02
[2020-03-25] MEDS ORDERED: ENTER DRUG NAME HERE (PATIENT'S OWN MED) PO SCH (21:00)
[2020-03-25] MEDS ORDERED: SUCRALFATE 1 GM TAB PO SCH (21:00)
[2020-03-25] MEDS ORDERED: LATANOPROST 0.005% OPHTH SOLN 2.5 ML OU SCH (21:00)
[2020-03-25] MEDS ORDERED: ATORVASTATIN 20 MG TAB PO SCH (21:00)
[2020-03-25] MEDS ORDERED: MIRTAZAPINE 15 MG TAB PO SCH (21:00)
[2020-03-25] MEDS ORDERED: METOPROLOL SUCC *XL* 25MG TAB (TopROL *XL*) PO SCH (21:00)
[2020-03-25] MEDS ORDERED: ASPIRIN 81 MG ENTERIC TAB PO SCH (21:00)
[2020-03-25] MEDS ORDERED: methylPREDNISolone INJ 125 MG/2 ML VIAL (J2930) IV STA (21:06)
[2020-03-25] MEDS ORDERED: LEVALBUTEROL 1.25 MG/0.5 ML CONCENTRATE NEB INH PRN (21:15)
[2020-03-25] MEDS ORDERED: RAMELTEON 8 MG TAB (ROZEREM) PO PRN (21:30)
[2020-03-25] MEDS ORDERED: ACETAMINOPHEN *IV* 1,000 MG in IV 1 EA IV ONE (21:30)
[2020-03-25 21:33] LABS: MAGNESIUM LEVEL 2.6 MG/DL (1.8-2.4)
[2020-03-25 21:38] VITALS: BP 218/110; O2SAT 95
[2020-03-25 23:24] VITALS: BP 199/97; O2SAT 96
[2020-03-25] MEDS: DOCUSATE SODIUM 100 MG CAP PO SCH (23:26)
[2020-03-25] MEDS: THIAMINE 100 MG TAB PO SCH (23:27)
[2020-03-25 23:43] VITALS: O2SAT 96
[2020-03-26] VITALS (15 sets, daily range): BP systolic 152–215; BP diastolic 79–96; O2SAT 91–95
[2020-03-26] MEDS: IPRATROPIUM 0.5MG/ALBUTEROL 2.5MG INH SOL UD 3ML (DUONEB)(J7620) NEB SCH ×3 (01:14→13:21)
[2020-03-26 04:56] LABS: HEMATOCRIT 39.8 % (42.0-52.0); HEMOGLOBIN 13.2 g/dl (13.5-17.5); MEAN CORPUSCULAR HEMOGLOBIN 31.8 pg (27.0-33.0); MEAN CORPUSCULAR HGB CONC 33.2 g/dl (32.0-36.5); MEAN CORPUSCULAR VOLUME 95.9 fl (80.0-96.0); PLATELET COUNT, AUTOMATED 243 10^3/uL (150-450); RED BLOOD COUNT 4.15 10^6/uL (4.30-6.10); WHITE BLOOD COUNT 6.5 10^3/uL (4.0-10.0)
[2020-03-26] MEDS: amLODIPine 5 MG TAB PO SCH ×2 (05:10→08:06)
[2020-03-26 05:17] LABS: BLOOD UREA NITROGEN 21 MG/DL (7-18); CALCIUM LEVEL 8.7 MG/DL (8.8-10.2); CARBON DIOXIDE LEVEL 23 MEQ/L (21-32); CHLORIDE LEVEL 107 MEQ/L (98-107); CREATININE FOR GFR 1.11 MG/DL (0.70-1.30); GLOMERULAR FILTRATION RATE > 60.0 (>35); GLUCOSE, FASTING 151 MG/DL (70-100); POTASSIUM SERUM 4.2 MEQ/L (3.5-5.1); SODIUM LEVEL 137 MEQ/L (136-145)
[2020-03-26] MEDS: THIAMINE 100 MG TAB PO SCH (08:05)
[2020-03-26] MEDS: DOCUSATE SODIUM 100 MG CAP PO SCH (08:05)
[2020-03-26] MEDS ORDERED: SLF 3 ML SYR IV PRN (08:15)
[2020-03-26] MEDS ORDERED: ENOXAPARIN 40MG/0.4ML SYRINGE (J1650 PER 10MG) SC SCH ×2 (09:00)
[2020-03-26] MEDS ORDERED: FOLIC ACID 1 MG TAB PO SCH (09:00)
[2020-03-26] MEDS ORDERED: MULTIVITAMINS/MINERALS THERAP 1 TAB PO SCH (09:00)
[2020-03-26] MEDS ORDERED: ENTER DRUG NAME HERE (PATIENT'S OWN MED) INH SCH (09:00)
[2020-03-26] MEDS ORDERED: TIMOLOL MALEATE 0.5% OPHTH SOLN 5 ML OU SCH (09:00)
[2020-03-26] MEDS ORDERED: predniSONE 20 MG TAB PO SCH (09:00)
[2020-03-26] MEDS ORDERED: AMLO5TAB6 PO (12:16)
--- NOTE | 2020-03-26 12:18 | DS.PDOC ---
Discharge Summary General Date of Admission Mar 25, 2020 at 19:08 Date of Discharge 03/26/2020 Primary Care Physician: Jr Rai Collins Attending Physician: ONEL VIDALES MD Discharge Summary PROCEDURES PERFORMED DURING STAY: None. ADMITTING/DISCHARGE DIAGNOSES: Hypertensive urgency COMPLICATIONS/CHIEF COMPLAINT: HISTORY OF PRESENT ILLNESS/HOSPITAL COURSE: 79 yr old male presented with R- sided neck pain with radiation to his head beginning 3 days ago, that remitted somewhat yesterday and then relapsed causing him to come to the ED. He also states he checked his BP at home which is usually normal and found it was 230/100. In the ED his blood pressure was 222/100 on arrival and he complained of heart palpitations, feeling like his eyes were bulging, and his right sided neck pain. Initial work up was negative, but his blood pressure remained e levated so he was admitted for hypertensive urgency and blood pressure control overnight. He was started on metoprolol and hydralazine on the floors and this morning his blood pressure showed SBP in the 150s DISCHARGE MEDICATIONS: Please see below. ALLERGIES: Please see below. Vitals: (see below) General: No acute distress, laying comfortably in bed. HEENT: Normocephalic, atraumatic. EOMI. No scleral icterus. Moist mucous membranes. No pharyngeal erythema or uvular deviation. Neck: No JVD, lymphadenopathy, or thyromegaly. Cardiac: RRR, Normal S1 and S2, No murmurs, gallops, rubs. Pulm: Clear to auscultation b/l. Symmetric thorax. No wheezing, crackles, rhonchi Abd: Bowel Sounds present. Abdomen is soft, non-tender, non-distended. No guarding, rebound tenderness, or rigidity. No hepatosplenomegaly. No masses or eccymosis. Ext: No edema or cyanosis Skin: No skin changes Neuro: No focal neuro deficits Psych: Appropriate affect LABORATORY DATA: Please see below. IMAGING: PROGNOSIS: stable ACTIVITY: [As tolerated]. DIET: As tolerated DISCHARGE PLAN: DISPOSITION: . DISCHARGE INSTRUCTIONS: 1. . ITEMS TO FOLLOWUP ON ON OUTPATIENT: 1. . DISCHARGE CONDITION: [Stable]. TIME SPENT ON DISCHARGE: 35 minutes Vital Signs/I&Os Vital Signs Date Time Temp Pulse Resp B/P (MAP) Pulse Ox O2 Delivery O2 Flow Rate FiO2 03/26/20 11:56 97.2 66 18 152/82 (105) 96 Nasal Cannula 2.0 I&O- Last 24 Hours up to 6 AM 03/26/20 06:00 Intake Total 0 ml Output Total 800 ml Balance -800 ml Laboratory Data Labs 24H Laboratory Tests 2 03/25/20 16:09: Immature Granulocyte % (Auto) 0.5, Neutrophils (%) (Auto) 72.1H, Lymphocytes (%) (Auto) 11.1L, Monocytes (%) (Auto) 11.9H, Eosinophils (%) (Auto) 3.8H, Basophils (%) (Auto) 0.6, Neutrophils # (Auto) 6.8, Lymphocytes # (Auto) 1.1L, Monocytes # (Auto) 1.1H, Eosinophils # (Auto) 0.4, Basophils # (Auto) 0.1, Nucleated Red Blood Cells % (auto) 0.0, Anion Gap 4L, Glomerular Filtration Rate > 60.0, Calcium Level 8.9, Magnesium Level 2.6H, Total Bilirubin 0.6, Direct Bilirubin 0.2, Aspartate Amino Transf (AST/SGOT) 42H, Alanine Aminotransferase (ALT/SGPT) 54, Alkaline Phosphatase 159H, Total Creatine Kinase 41, Creatine Kinase MB < 1.0, Creatine Kinase MB Relative Index 2.44, Troponin I < 0.02, C- Reactive Protein, Quantitative 1.85H, NU-Bxq-J-Type Natriuretic Peptide 169, Total Protein 7.8, Albumin 4.0, Albumin/Globulin Ratio 1.05, Thyroid Stimulating Hormone (TSH) 0.936, Free Thyroxine 0.98, Ethyl Alcohol Level < 0.003 03/26/20 04:30: Nucleated Red Blood Cells % (auto) 0.0, Anion Gap 7L, Glomerular Filtration Rate > 60.0, Calcium Level 8.7L CBC/BMP Laboratory Tests 03/25/20 16:09 03/26/20 04:30 Microbiology Microbiology 03/25/20 Respiratory Virus Panel (PCR) (YOMI) - Final, Complete Discharge Medications Scheduled Amlodipine Besylate (Amlodipine Besylate) 5 Mg Tablet, 5 MG PO DAILY Please take 1 tab by mouth daily. Aspirin (Aspirin EC) 81 Mg Tab, 81 MG PO QHS, (Reported) Atorvastatin Calcium (Atorvastatin Calcium) 40 Mg Tab, 40 MG PO QHS, (Reported) Dofetilide (Tikosyn) 250 Mcg Cap, 250 MCG PO BID, (Reported) Fluticasone/Vilanterol (Breo Ellipta 100-25 Mcg INH) 1 Each Blst.w.dev, 1 PUFF INH DAILY, (Reported) Magnesium Oxide (Magnesium Oxide) 400 Mg Tablet, 400 MG PO BID, (Reported) Metoprolol Succinate (Metoprolol Succinate) 25 Mg Tab.er.24h, 25 MG PO QHS, (Reported) Mirtazapine (Remeron) 30 Mg Tablet, 30 MG PO QHS, (Reported) Sucralfate (Sucralfate) 1 Gm Tablet, 1 GM PO QHS, (Reported) Timolol Maleate (Timolol Maleate) 0.5% 5ML Drop.daily, 1 DROP OU DAILY, (Reported) Travoprost (Travatan Z) 50 Drop/2.5 Ml Soln, 1 DROP OU QHS, (Reported) Scheduled PRN Albuterol Sulfate (Albuterol Sulfate Hfa) 8.5 Gm Hfa.aer.ad, 2 PUFF INH QID PRN for SHORTNESS OF BREATH, (Reported) Carisoprodol (Carisoprodol) 350 Mg Tablet, 350 MG PO TID PRN for SPASMS, (Reported) Allergies Coded Allergies: Contrast Media (Verified Adverse Reaction, Mild, nausea, feeling hot, 08/24/19) GME ATTESTATION GME ATTESTATION My faculty preceptor for this patient encounter was physically present during the encounter and was fully available. All aspects of the patient interview, examination, medical decision making process, and medical care plan development were reviewed and approved by the faculty preceptor. The faculty preceptor is aware and concurs with the plan as stated in the body of this note and will attest to such by his/her cosignature. MASON BARTLETT DO Mar 26, 2020 12:18
[2020-03-26] MEDS ORDERED: SLF 3 ML SYR IV SCH (14:00)
--- NOTE | 2020-03-26 16:39 | ECGEPIP ---
[facility] - ED Test Date: 2020-03-25 Pat Name: CHANELLE SALCEDO Department: Room: - Gender: Male Relocation Counselor: perfecto bowman : 1940 Requested By: JOSEPH Lake Order Number: [id number] Reading MD: Mini Tomas Measurements Intervals [place] Rate: 58 P: 104 KS: 189 QRS: -11 QRSD: 98 T: 14 QT: 446 QTc: 440 Interpretive Statements SINUS BRADYCARDIA WITH OCCASIONAL SUPRAVENTRICULAR PREMATURE BEATS MINIMAL VOLTAGE CRITERIA FOR LVH, CONSIDER NORMAL VARIANT baseline artifact may affect interpretation ABNORMAL RHYTHM ECG INCREASED RATE 10/22/17 Electronically Signed on 03-26-2020 16:38:59 EDT by Mini Tomas
== END 2020-03-26 15:34 | disposition home or self-care (01) | DRG 305 ==
LOC: M ED 15:07 → EDBD 15:07 → M ED INP 19:08 → ENRESERV 20:51 → M PCU 21:38
PROVIDERS: ADMIT Internal Medicine; ATTEND Internal Medicine
DX: I16.0 Hypertensive urgency (principal); J44.1 Chronic obstructive pulmonary disease with (acute) exacerbation; I48.20 Chronic atrial fibrillation, unspecified; F10.10 Alcohol abuse, uncomplicated; E66.9 Obesity, unspecified; Z79.899 Other long term (current) drug therapy; Z79.82 Long term (current) use of aspirin; Z91.041 Radiographic dye allergy status; G47.33 Obstructive sleep apnea (adult) (pediatric); K57.30 Diverticulosis of large intestine without perforation or abscess without bleeding; I25.10 Atherosclerotic heart disease of native coronary artery without angina pectoris; Z95.2 Presence of prosthetic heart valve; K21.9 Gastro-esophageal reflux disease without esophagitis; K64.8 Other hemorrhoids; M19.90 Unspecified osteoarthritis, unspecified site; Z85.46 Personal history of malignant neoplasm of prostate; Z87.891 Personal history of nicotine dependence

== ENCOUNTER 2020-04-22 22:07 | Emergency (ER) | payer MEDICARE, BC ==
[~2020-04-22] VITALS: Ht 177.8 cm; Wt 112.7 kg
[~2020-04-22 22:07] MED LIST changes: +ALBU8.5H INH; +AMLO5TAB6 PO; +BREO1INH INH; +MIRTAZAPINE; +REME30TA PO; +SUCR1TAB56 PO; +TIMO0.5S39 OU
[2020-04-22] MEDS ORDERED: ISOVUE-370 76% 100ML VIAL As Ordered ONE (23:48)
--- NOTE | 2020-04-23 00:21 | REPVR ---
PROCEDURE INFORMATION: Exam: CT Abdomen And Pelvis With Contrast Exam date and time: 04/22/2020 11:01 PM Age: 79 years old Clinical indication: Abdominal pain; Localized; Left upper quadrant (luq); Additional info: Injury to luq, R/O injury to spleen TECHNIQUE: Imaging protocol: Computed tomography of the abdomen and pelvis with intravenous contrast. Radiation optimization: All CT scans at this facility use at least one of these dose optimization techniques: automated exposure control; mA and/or kV adjustment per patient size (includes targeted exams where dose is matched to clinical indication); or iterative reconstruction. Contrast material: ISO; Contrast volume: 100 ml; Contrast route: AC; COMPARISON: CT ABD PELVIS WITH CONTRAST 03/25/2020 5:17 PM FINDINGS: Liver: Small hepatic hypodensities are too small to characterize. Gallbladder and bile ducts: Previous cholecystectomy. Pancreas: Pancreas is atrophic. Spleen: Spleen appears within normal limits. Adrenals: Normal. No mass. Kidneys and ureters: Enhancing right renal mass measures 3.5 centimetres. There are a few left renal cysts measuring up to 3 centimetres, stable from prior. Stomach and bowel: There are metallic clips at the GE junction. Diverticulosis without diverticulitis. Appendix: No evidence of appendicitis. Intraperitoneal space: Unremarkable. No free air. No significant fluid collection. Vasculature: Vascular calcification. Lymph nodes: Unremarkable. No enlarged lymph nodes. Bladder: Unremarkable as visualized. Reproductive: Unremarkable as visualized. Bones/joints: There are degenerative changes involving the spine. Chronic compression fracture involving T9. Soft tissues: Small fat containing umbilical hernia. Small left inguinal hernia containing fat. IMPRESSION: 1. No acute abnormality. Spleen appears within normal limits. 2. Stable right renal mass. The Electronically signed by: Javier Delgadillo On 04/23/2020 00:21:00 AM
--- NOTE | 2020-04-23 00:38 | REPVR ---
PROCEDURE INFORMATION: Exam: XR Left Ribs with PA Chest, 3 Views Exam date and time: 04/22/2020 10:53 PM Age: 79 years old Clinical indication: Injury or trauma; Fall; Initial encounter; Rib area, left side; Wound; Without foreign body; Additional info: Rib pain TECHNIQUE: Imaging protocol: XR Left ribs 3 views with PA chest. COMPARISON: CR PORTABLE CHEST X-RAY 03/25/2020 3:55 PM FINDINGS: Lungs: Mild left basilar atelectasis. No consolidation. Pleural space: Unremarkable. No pleural effusion. No pneumothorax. Heart/Mediastinum: Unremarkable. No cardiomegaly. Bones/joints: There are degenerative changes involving the spine. Osteopenia. IMPRESSION: No acute abnormality. Electronically signed by: Javier Delgadillo On 04/23/2020 00:38:29 AM
[2020-04-23 01:07] VITALS: BP 182/88
[2020-04-23] MEDS ORDERED: IBUPROFEN 600MG TAB PO ONE (01:15)
--- NOTE | 2020-04-25 11:05 | ED PDOC ---
Post-Departure Follow-Up dr vargas faxed formal report of ct abd/ for fu. Ashley Root MD April 25, 2020 11:05
== END 2020-04-23 01:13 | disposition home or self-care (01) ==
LOC: M ED 22:07
DX: S20.212A Contusion of left front wall of thorax, initial encounter (principal); W17.89XA Other fall from one level to another, initial encounter; Y92.9 Unspecified place or not applicable; Y93.9 Activity, unspecified; I48.91 Unspecified atrial fibrillation; I10 Essential (primary) hypertension; J44.9 Chronic obstructive pulmonary disease, unspecified; G47.33 Obstructive sleep apnea (adult) (pediatric); E78.5 Hyperlipidemia, unspecified; I73.9 Peripheral vascular disease, unspecified; Z91.041 Radiographic dye allergy status
CPT/HCPCS: 71101; 74177; 80047; 99284; Q9967

== ENCOUNTER → 2020-04-25 | Outpatient (REF) | payer MEDICARE, BC ==
[2020-04-25 18:23] LABS: AMYLASE 60 U/L (25-115); LIPASE 118 U/L (73-393)
== END ==
LOC: M LAB REF 16:01
PROVIDERS: ATTEND Physician Assistant Medical
DX: R10.12 Left upper quadrant pain (principal)

== ENCOUNTER → 2020-05-15 | Outpatient (REF) | payer MEDICARE, BC ==
[2020-05-15 12:40] LABS: APPEARANCE, URINE CLEAR (CLEAR); BACTERIA, URINE AUTO NEGATIVE (NEGATIVE); BILIRUBIN, URINE AUTO NEGATIVE (NEGATIVE); BLOOD, URINE BLOOD NEGATIVE (NEGATIVE); COLOR, URINE YELLOW (YELLOW); GLUCOSE, URINE (UA) AUTO NEGATIVE (NEGATIVE); KETONE, URINE AUTO NEGATIVE (NEGATIVE); LEUKOCYTE ESTERASE, URINE AUTO NEGATIVE (NEGATIVE); NITRITE, URINE AUTO NEGATIVE (NEGATIVE); PROTEIN, URINE AUTO NEGATIVE (NEGATIVE); RBC, URINE AUTO 0 /HPF (0-3); SPECIFIC GRAVITY URINE AUTO 1.014 (1.002-1.035); SQUAMOUS EPITHELIAL CELL UR AU 0 /HPF (0-6); UROBILINOGEN, URINE AUTO 0.2 mg/dL (0.0-2.0); WBC, URINE AUTO 1 /HPF (0-3)
== END ==
LOC: M LAB REF 12:21
PROVIDERS: ATTEND Internal Medicine
DX: Z01.810 Encounter for preprocedural cardiovascular examination (principal)

== ENCOUNTER → 2020-09-15 | Outpatient (CLI) | payer MEDICARE, BC ==
[~2020-09-15] MED LIST changes: +AMLO1TAB24 PO; -AMLO5TAB6 PO; +PANT40TA29 PO; -PANT40TA3 PO
--- NOTE | 2020-09-15 11:35 | REP ---
INDICATION: NEOPLASM OF UNCERTAIN BEHAVIOR OF RIGHT KIDNEY (XR1/CT2) COMPARISON: 03/25/2020 TECHNIQUE: PA and lateral. FINDINGS: The mediastinum and cardiac silhouette are normal. The lung rowley are clear and without acute consolidation, effusion, or pneumothorax. The skeletal structures are intact and normal. IMPRESSION: No acute cardiopulmonary process. <Electronically signed by Tom Norwood > 09/15/20 [id number]
[2020-09-15 12:26] LABS: HEMATOCRIT 38.9 % (42.0-52.0); HEMOGLOBIN 12.7 g/dl (13.5-17.5); MEAN CORPUSCULAR HEMOGLOBIN 31.5 pg (27.0-33.0); MEAN CORPUSCULAR HGB CONC 32.6 g/dl (32.0-36.5); MEAN CORPUSCULAR VOLUME 96.5 fl (80.0-96.0); PLATELET COUNT, AUTOMATED 243 10^3/uL (150-450); RED BLOOD COUNT 4.03 10^6/uL (4.30-6.10); WHITE BLOOD COUNT 5.5 10^3/uL (4.0-10.0)
--- NOTE | 2020-09-15 12:52 | REP ---
INDICATION: NEOPLASM OF UNCERTAIN BEHAVIOR OF RIGHT KIDNEY (XR1/CT2) COMPARISON: 03/25/2020 TECHNIQUE: Axial noncontrast images from the lung bases to the pubic symphysis with coronal and sagittal reformations. FINDINGS: Right kidney demonstrates evidence for prior partial nephrectomy and the previously noted right renal mass has been excised without obvious evidence for recurrence or right pararenal adenopathy/metastatic disease. The left kidney demonstrates relatively stable hypodense lesions compatible with cysts measuring up to approximately 4 cm. Liver, spleen, pancreas, and bilateral adrenal glands are normal. Prior cholecystectomy noted. The enteric system is without obstruction or acute inflammatory process. Scattered sigmoid diverticula noted without acute diverticulitis. Pelvis demonstrates normal bladder and stable appearance of the prostate gland along with small fat containing left inguinal hernia. No ascites. No free air. No adenopathy. Atherosclerotic changes to the aorta and vasculature without aneurysm. Musculoskeletal structures demonstrate age-related degenerative changes without acute osseous abnormality. Lung bases are clear. IMPRESSION: 1. Evidence for prior partial right nephrectomy without evidence for recurrence or metastatic disease. 2. Left renal lesions most compatible with cysts remain stable and measure up to 4 cm. 3. Diverticulosis without acute diverticulitis. 4. Small fat containing left inguinal hernia. <Electronically signed by Tom Norwood > 09/15/20 [id number]
[2020-09-15 12:58] LABS: ALBUMIN 3.8 GM/DL (3.2-5.2); BILIRUBIN,TOTAL 0.8 MG/DL (0.2-1.0); CALCIUM LEVEL 9.2 MG/DL (8.8-10.2); CREATININE FOR GFR 1.35 MG/DL (0.70-1.30); POTASSIUM SERUM 4.5 MEQ/L (3.5-5.1); TOTAL PROTEIN 7.2 GM/DL (6.4-8.2)
== END ==
LOC: M RAD 11:05
PROVIDERS: ATTEND Physician Assistant Medical
DX: D41.01 Neoplasm of uncertain behavior of right kidney (principal)

== ENCOUNTER → 2020-11-10 | Outpatient (REF) | payer MEDICARE, BC ==
[~2020-11-10] MED LIST changes: +MIRT-60 PO; -REME30TA PO
== END ==
LOC: M LAB REF 16:22
PROVIDERS: ATTEND Internal Medicine
DX: N40.1 Benign prostatic hyperplasia with lower urinary tract symptoms (principal)

== ENCOUNTER → 2022-01-27 | Outpatient (REF) | payer MEDICARE, BC ==
[~2022-01-27] MED LIST changes: -MAGN400T3 PO; +MAGN400T33 PO; +OMEP40CA4 PO; -OMEP40CA97 PO
[2022-01-27 19:49] LABS: SOURCE, BODY FLUID LFT ELBOW; SYNOVIAL FLUID COLOR RED (COLORLESS)
[2022-01-27 20:24] LABS: CRYSTALS, BODY FLUID NONE SEEN (NONE SEEN); SOURCE, BODY FLUID CRYSTALS LFT ELBOW
== END ==
LOC: M LAB REF 16:34
PROVIDERS: ATTEND Internal Medicine
DX: M70.32 Other bursitis of elbow, left elbow (principal); M25.50 Pain in unspecified joint

== ENCOUNTER → 2022-01-27 | Outpatient (REF) | payer MEDICARE, BC | LOC: M LAB REF 16:22 | PROVIDERS: ATTEND Internal Medicine | DX: M25.50 Pain in unspecified joint (principal) ==

== ENCOUNTER → 2022-04-01 | Outpatient (CLI) | payer MEDICARE, BC | LOC: M WUC 15:00 | PROVIDERS: ATTEND Physician Assistant | DX: J20.9 Acute bronchitis, unspecified (principal) ==

== ENCOUNTER → 2023-03-30 | Outpatient (CLI) | payer MEDICARE, BC ==
[~2023-03-30] MED LIST changes: +AMLO1TAB25 PO; +ATOR80TA59 PO; +BUPR150T12 PO; -DOXY-350 PO; +DOXY-444 PO; +MYRB25TA PO; +PRED20TA PO
== END ==
LOC: M WUC 15:35
PROVIDERS: ATTEND Student in an Organized Health Care Education/Training Program
DX: J20.9 Acute bronchitis, unspecified (principal)

== ENCOUNTER 2023-04-01 17:15 | Observation (INO) | payer MEDICARE, BC ==
[~2023-04-01] VITALS: Ht 177.8 cm; Wt 112.0 kg
[~2023-04-01 17:15] MED LIST changes: -AMLO1TAB25 PO; -ATOR80TA59 PO; -BUPR150T12 PO; -MYRB25TA PO; -PRED20TA PO
[2023-04-01] MEDS ORDERED: LABETALOL 100MG/20ML VIAL IV STA (17:37)
[2023-04-01] MEDS ORDERED: diphenhydrAMINE 50MG/ML VIAL IV STA (17:39)
[2023-04-01] MEDS ORDERED: methylPREDNISolone 125MG 2ML VIAL IV ONE (17:40)
[2023-04-01 18:03] LABS: BASO # 0.1 10^3/uL (0.0-0.2); EOS # 0.6 10^3/uL (0.0-0.5); EOS % 9.2 % (0.0-3.0); HEMATOCRIT 41.1 % (42.0-52.0); LYMPH % 16.5 % (24.0-44.0); MEAN CORPUSCULAR HEMOGLOBIN 32.6 pg (27.0-33.0); MEAN CORPUSCULAR HGB CONC 34.1 g/dl (32.0-36.5); MEAN CORPUSCULAR VOLUME 95.8 fl (80.0-96.0); MONO # 0.9 10^3/uL (0.0-0.8); MONO % 14.5 % (2.0-8.0); NEUTROPHILS # 3.5 10^3/uL (1.5-8.5); NEUTROPHILS % 58.5 % (36.0-66.0); PLATELET COUNT, AUTOMATED 270 10^3/uL (150-450); RED BLOOD COUNT 4.29 10^6/uL (4.30-6.10)
[2023-04-01 18:22] LABS: ALBUMIN 3.9 G/DL (3.2-5.2); ALKALINE PHOSPHATASE 133 U/L (46-116); ALT/SGPT 105 U/L (7.0-40); AST/SGOT 75 U/L (<34); BILIRUBIN,DIRECT 0.2 MG/DL (<0.4); BILIRUBIN,TOTAL 0.6 MG/DL (0.3-1.2); CK-MB VALUE MASS < 1.0 NG/ML (<3.6); TOTAL PROTEIN 7.3 G/DL (5.7-8.2)
[2023-04-01 18:23] LABS: CPK CREATINE PHOSPHOKINASE 55 U/L (46-171); MB/CK RELATIVE INDEX 1.81 (< OR =4)
[2023-04-01] MEDS ORDERED: ISOVUE-370 76% 100ML VIAL As Ordered ONE (18:24)
[2023-04-01 18:27] LABS: INR 0.99; PROTHROMBIN TIME 13.3 SECONDS (12.5-14.5)
[2023-04-01] MEDS ORDERED: ATOR80TA59 PO (20:30)
[2023-04-01] MEDS ORDERED: PRED20TA PO (20:32)
[2023-04-01] MEDS ORDERED: MYRB25TA PO (20:32)
[2023-04-01] MEDS ORDERED: BUPR150T12 PO (20:32)
[2023-04-01] MEDS ORDERED: HOME MED LIST COMPLETE! XX SCH (20:35)
[2023-04-01 20:49] LABS: RSV AMPLIFICATION NEGATIVE (NEGATIVE)
[2023-04-01] MEDS ORDERED: METOPROLOL SUCC *XL* 25MG TAB (TopROL *XL*) PO SCH (21:00)
[2023-04-01] MEDS ORDERED: ATORVASTATIN 20 MG TAB PO SCH (21:00)
[2023-04-01] MEDS ORDERED: MIRTAZAPINE 15 MG TAB PO SCH (21:00)
[2023-04-01] MEDS ORDERED: ASPIRIN 81MG ENTERIC TABLET PO SCH (21:00)
[2023-04-01] MEDS ORDERED: ALBUTEROL 90 MCG/ACT 8GM HFA INHALER INH PRN (21:05)
[2023-04-01] MEDS ORDERED: carisoprodoL 350 MG TAB PO PRN (21:05)
[2023-04-01] MEDS: SUCRALFATE 1 GM TAB PO SCH (21:50)
[2023-04-01 23:01] VITALS: BP 176/90
[2023-04-02] VITALS (12 sets, daily range): BP systolic 145–180; BP diastolic 76–92; O2SAT 89–93
[2023-04-02 04:55] LABS: ALBUMIN 3.3 G/DL (3.2-5.2); BILIRUBIN,TOTAL 0.5 MG/DL (0.3-1.2); CALCIUM LEVEL 8.8 MG/DL (8.3-10.6); CREATININE FOR GFR 1.23 MG/DL (0.70-1.30); GLOMERULAR FILTRATION RATE 59.7 (>35); POTASSIUM SERUM 4.1 MMOL/L (3.5-5.1); TOTAL PROTEIN 6.3 G/DL (5.7-8.2)
[2023-04-02] MEDS: SUCRALFATE 1 GM TAB PO SCH (08:08)
[2023-04-02] MEDS ORDERED: buPROPion **XL** TABLET 150MG (WELLBUTRIN XL) PO SCH (09:00)
[2023-04-02] MEDS ORDERED: predniSONE 20 MG TAB PO SCH (09:00)
[2023-04-02] MEDS ORDERED: DOFETILIDE 250 MG PO SCH (09:00)
[2023-04-02] MEDS ORDERED: TIMOLOL MALEATE 0.5% OPHTH SOLN 5 ML OU SCH (10:30)
[2023-04-02] MEDS ORDERED: AMLO1TAB25 PO (14:05)
[2023-04-02] MEDS ORDERED: LATANOPROST 0.005% OPHTH SOLN 2.5 ML OU SCH (21:00)
== END 2023-04-02 15:23 | disposition home or self-care (01) ==
LOC: M ED 17:15 → M ED INP 17:16 → M PCU 22:49
PROVIDERS: ADMIT Internal Medicine; ATTEND Internal Medicine
DX: I16.0 Hypertensive urgency (principal); R79.1 Abnormal coagulation profile; I48.91 Unspecified atrial fibrillation; N28.1 Cyst of kidney, acquired; R74.01 Elevation of levels of liver transaminase levels; I12.9 Hypertensive chronic kidney disease with stage 1 through stage 4 chronic kidney disease, or unspecified chronic kidney disease; N18.30 Chronic kidney disease, stage 3 unspecified; I25.10 Atherosclerotic heart disease of native coronary artery without angina pectoris; Z98.61 Coronary angioplasty status; F32.A Depression, unspecified; J45.909 Unspecified asthma, uncomplicated; K21.9 Gastro-esophageal reflux disease without esophagitis; Z85.46 Personal history of malignant neoplasm of prostate; Z79.82 Long term (current) use of aspirin; Z79.899 Other long term (current) drug therapy
CPT/HCPCS: 36415; 71275; 80047; 80053; 80076; 82550; 82553; 83880; 84484; 85025; 85379; 85610; 87486; 87581; 87631; 87633; 87798; 93005; 93041; 94760; 96374; 96375; 97161; 97530; 99285; G0378; J1200; J2930; J7512; Q9967

== ENCOUNTER → 2023-04-01 | Outpatient (REF) | payer MEDICARE, BC | LOC: M LAB REF 11:55 | PROVIDERS: ATTEND Nurse Practitioner Family | DX: R06.02 Shortness of breath (principal) ==

== ENCOUNTER → 2023-06-10 | Outpatient (REF) | payer MEDICARE, BC ==
[~2023-06-10] MED LIST changes: +AMLO1TAB25 PO; +ATOR80TA59 PO; +BUPR150T12 PO; +MYRB25TA PO; +PRED20TA PO
== END ==
LOC: M LAB REF 16:20
PROVIDERS: ATTEND Internal Medicine
DX: I48.0 Paroxysmal atrial fibrillation (principal)

== ENCOUNTER → 2023-09-12 | Outpatient (REF) | payer MEDICARE, BC ==
[2023-09-12 17:33] LABS: PERCENT SATURATION 20.7 % (19.7-50.0)
[2023-09-12 17:34] LABS: FERRITIN 31.6 NG/ML (10.5-307.3)
== END ==
LOC: M LAB REF 16:35
PROVIDERS: ATTEND Internal Medicine
DX: D64.9 Anemia, unspecified (principal)

== ENCOUNTER → 2023-09-20 | Outpatient (CLI) | payer MEDICARE, BC | LOC: M LAB 15:06 | PROVIDERS: ATTEND Internal Medicine Cardiovascular Disease | DX: I25.119 Atherosclerotic heart disease of native coronary artery with unspecified angina pectoris (principal) ==

== ENCOUNTER → 2024-05-22 | Outpatient (CLI) | payer OTHER ==
[~2024-05-22] MED LIST changes: +DOXY-440 PO; -DOXY-444 PO; -MIRT-60 PO; +MIRT-89 PO
== END ==
LOC: M WUC 15:47
PROVIDERS: ATTEND Physician Assistant
DX: R05.9 Cough, unspecified (principal); J06.9 Acute upper respiratory infection, unspecified

== ENCOUNTER → 2024-06-06 | Outpatient (REF) | payer MEDICARE, BC ==
[~2024-06-06] MED LIST changes: -TIKO250C PO; +[UNRECOGNIZED DRUG - CODE] PO
[2024-06-06 17:14] LABS: PERCENT SATURATION 19.9 % (19.7-50.0)
[2024-06-06 17:15] LABS: FERRITIN 34.6 NG/ML (10.5-307.3)
== END ==
LOC: M LAB REF 16:31
PROVIDERS: ATTEND Internal Medicine
DX: D64.9 Anemia, unspecified (principal)

== ENCOUNTER → 2024-06-14 | Outpatient (CLI) | payer MEDICARE, BC | LOC: M PLAIMG 12:49 | PROVIDERS: ATTEND Internal Medicine | DX: J44.9 Chronic obstructive pulmonary disease, unspecified (principal); R06.00 Dyspnea, unspecified; N28.89 Other specified disorders of kidney and ureter ==

== ENCOUNTER → 2024-06-14 | Outpatient (CLI) | payer OTHER, MEDICARE | LOC: M WHC 13:14 | PROVIDERS: ATTEND Nurse Practitioner Family | DX: Z13.820 Encounter for screening for osteoporosis (principal); M85.851 Other specified disorders of bone density and structure, right thigh ==

== ENCOUNTER 2024-06-22 15:01 | Emergency (ER) | payer OTHER, MEDICARE ==
[~2024-06-22] VITALS: Ht 172.7 cm; Wt 109.1 kg
[2024-06-22] MEDS ORDERED: FURO40TA2 (15:19)
[2024-06-22] MEDS ORDERED: MONT10TA97 (15:19)
[2024-06-22] MEDS: NORCO, ANEXSIA 5/325MG TABLET (HYDROcodone/ACETAMINOPHEN) PO ONE (19:15)
[2024-06-22] MEDS ORDERED: IBUP-1022 PO (20:54)
[2024-06-22] MEDS ORDERED: SOMA350T PO (20:54)
[2024-06-22 21:40] VITALS: BP 182/92; TEMP 98.6; O2SAT 98
[2024-06-22 21:47] VITALS: BP 182/92
== END 2024-06-22 22:00 | disposition home or self-care (01) ==
LOC: M ED 15:01
DX: M54.50 Low back pain, unspecified (principal); I10 Essential (primary) hypertension; Z91.041 Radiographic dye allergy status; Z79.51 Long term (current) use of inhaled steroids; Z79.1 Long term (current) use of non-steroidal anti-inflammatories (NSAID); Z79.899 Other long term (current) drug therapy

== ENCOUNTER → 2024-08-23 | Outpatient (CLI) | payer MEDICARE, BC ==
[~2024-08-23] MED LIST changes: +FURO40TA2; +IBUP-1022 PO; +MONT10TA97; +SOMA350T PO
== END ==
LOC: M RAD 16:31
PROVIDERS: ATTEND Internal Medicine
DX: M25.551 Pain in right hip (principal)

== ENCOUNTER → 2024-08-24 | Outpatient (REF) | payer MEDICARE, BC | LOC: M LAB REF 16:12 | PROVIDERS: ATTEND Internal Medicine | DX: M54.50 Low back pain, unspecified (principal) ==

== ENCOUNTER → 2024-09-06 | Outpatient (CLI) | payer MEDICARE, BC | LOC: M PLARAD 12:48 | PROVIDERS: ATTEND Pain Medicine Interventional Pain Medicine | DX: M96.1 Postlaminectomy syndrome, not elsewhere classified (principal); M47.816 Spondylosis without myelopathy or radiculopathy, lumbar region; M51.360 Other intervertebral disc degeneration, lumbar region with discogenic back pain only; M51.370 Other intervertebral disc degeneration, lumbosacral region with discogenic back pain only; M48.56XA Collapsed vertebra, not elsewhere classified, lumbar region, initial encounter for fracture ==

== ENCOUNTER → 2025-09-25 | Outpatient (REF) | payer MEDICARE, BC ==
[~2025-09-25] MED LIST changes: +CARI-555 PO; -CARI1TAB7 PO; -IBUP-1022 PO; +IBUP600T42 PO; -TIMO0.5S39 OU; +TIMO5DRO9 OU
[2025-09-25 18:43] LABS: IRON (FE) 118.0 UG/DL (65-175); PERCENT SATURATION 28.9 % (19.7-50.0)
== END ==
LOC: M LAB REF 17:51
PROVIDERS: ATTEND Internal Medicine
DX: D64.9 Anemia, unspecified (principal)